=== PATIENT | female | born 1955 | race Caucasian/White ===

== ENCOUNTER 2020-11-02 14:08 | Outpatient (CLI) | payer MEDICARE, MEDICAID | END 2020-11-02 14:09 | disposition home or self-care (01) | LOC: CSHRAD 14:08 | PROVIDERS: ATTEND Family Medicine | DX: S16.1XXA Strain of muscle, fascia and tendon at neck level, initial encounter (principal); M47.812 Spondylosis without myelopathy or radiculopathy, cervical region | CPT/HCPCS: 72050 ==

== ENCOUNTER 2023-08-17 05:50 | Day surgery (SDC) | payer MEDICARE ==
[2023-08-16 09:57] VITALS: BMI 33.3
[2023-08-17] MEDS ORDERED: PROPOFOL 40 ML ONE (07:31)
[2023-08-17] MEDS ORDERED: Lidocaine 1% PF 5 ML VIAL ONE (07:31)
[2023-08-17] MEDS ORDERED: PROPOFOL 20 ML ONE (07:56)
== END 2023-08-17 08:40 | disposition home or self-care (01) ==
LOC: CSHSDC 05:50
PROVIDERS: ATTEND Internal Medicine Gastroenterology
PROC: 0DJD8ZZ Inspection of Lower Intestinal Tract, Via Natural or Artificial Opening Endoscopic (ICD-10-PCS; principal; 2023-08-17)
DX: Z12.11 Encounter for screening for malignant neoplasm of colon (principal); K57.30 Diverticulosis of large intestine without perforation or abscess without bleeding; K64.9 Unspecified hemorrhoids; F32.A Depression, unspecified; I87.2 Venous insufficiency (chronic) (peripheral); F41.9 Anxiety disorder, unspecified; J44.9 Chronic obstructive pulmonary disease, unspecified; Z86.010 Personal history of colon polyps; Z80.0 Family history of malignant neoplasm of digestive organs; Z86.718 Personal history of other venous thrombosis and embolism
CPT/HCPCS: G0105; J2704